=== PATIENT | female | born 2000 | race Caucasian/White ===

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

== ENCOUNTER 2022-09-21 23:12 | Emergency (ER) | payer BC, SELFPAY ==
[2022-09-22 00:17] VITALS: BP 118/70; PULSE 74; RESP 16; TEMP 36.7; O2SAT 100
== END 2022-09-22 04:00 | disposition home or self-care (01) ==
LOC: ANHED 09-22 18:30
PROVIDERS: Emergency Provider Emergency Medicine; PCP Internal Medicine
DX: S61.251A Open bite of left index finger without damage to nail, initial encounter (principal); S61.250A Open bite of right index finger without damage to nail, initial encounter; W55.01XA Bitten by cat, initial encounter
CPT/HCPCS: 99283; A9270

== ENCOUNTER 2024-04-19 10:00 | Emergency (ER) | payer BC, SELFPAY ==
--- NOTE | ~2024-04-19 | XR_ITS ---
XR wrist RT min 3V 04/19/2024 10:51 Indication: Right wrist pain after fall Procedure: 4 views right wrist Comparison: 06/15/2016 Findings: There is a possible triquetrum fracture. No significant soft tissue abnormality. No foreign bodies. Impression: 1: Possible triquetral fracture. Correlate for point tenderness. Consider correlation with CT. Reviewed, dictated and finalized at location B. NG MACHINE TENDER Impression: 1: Possible triquetral fracture. Correlate for point tenderness. Consider corre lation with CT.
--- NOTE | ~2024-04-19 | XR_ITS ---
EXAMINATION: XR wrist LT min 3V DATE: 04/19/2024 10:51 INDICATION: Left wrist pain. Fall. TECHNIQUE: 4 views of left wrist were obtained. COMPARISON: Left hand radiographs 12/23/2012 FINDINGS: Alignment is normal. There is a nondisplaced transverse fracture of scaphoid waist. Joint s paces are normal. IMPRESSION: 1. Nondisplaced scaphoid waist fracture. Reviewed, dictated and finalized at location A. INE COUNTER AGENT
[2024-04-19 10:17] VITALS: BP 104/64; PULSE 74; RESP 20; TEMP 36.8; O2SAT 99
--- NOTE | 2024-04-19 10:28 | ED.UPPEXIN ---
HPI - Extremity Injury (Upper) General Chief Complaint: Extremity Injury, Upper Stated Complaint: Snowboarding fell on hands wrist Time Seen by Provider: 04/19/24 10:45 Source: patient, RN notes reviewed and old records reviewed Mode of arrival: ambulatory Limitations: no limitations History of Present Illness HPI narrative: Patient presents with complaints of bilateral wrist pain, left worse than right. She reports that she fell off of a snowboard yesterday. Caught self with outstretched hands. She retains full range of motion to both wrist, but states that this greatly increases pain. She does have some swelling to the left wrist. She took Advil last night, but has not taken any medications this morning. She has not applied ice to the site Related Data Home Medications ?Medication ?Instructions ?Recorded ?Confirmed ?Last Taken ?Type buspirone 5 mg tablet mg 04/19/24 Unknown History dextroamphetamine-amphetamine 5 mg 04/19/24 Unknown History tablet hydroxyzine HCl 50 mg tablet mg 04/19/24 Unknown History Allergies Allergy/AdvReac Type Severity Reaction Status Date / Time chlorhexidine Allergy Severe hives Verified 04/19/24 10:20 iodine Allergy Severe hives Verified 04/19/24 10:20 dermaglue Allergy Severe Rash Uncoded 09/29/21 16:15 Review of Systems Review of Systems: All systems reviewed & are unremarkable except as noted in HPI and below Constitutional: Constitutional: Reports no additional constitutional complaints ENT: Reports system reviewed and no additional complaints, except as documented Cardiovascular: Cardiovascular: Reports no additional cardiovascular complaints Respiratory: Respiratory: Reports no additional respiratory complaints Gastrointestinal: Gastrointestinal: Reports no additional gastrointestinal complaints Musculoskeletal: Musculoskeletal: Reports as per HPI and Reports arthralgias FOR[facility] Past Medical History Medical History Anemia Surgical History Surgical History [place] teeth extracted H/O knee surgery Hx of tonsillectomy Family History Family History Father No known problems Mother Celiac disease Sibling POTS (postural orthostatic tachycardia syndrome) Social History Social History Smoking status: Never smoker Alcohol intake: never Substance use: never Comments At the time of my signature, I reviewed and agree with the nursing past medical, surgical, social, and family history. There is no relevant family history pertinent to the patient complaint. Exam Const: General: cooperative, no acute distress, alert and awake Orientation/consciousness: oriented to person, oriented to place and oriented to time HENMT: Head: normal to inspection Resp: Effort & Inspection: normal respiratory effort and able to speak in complete sentences Auscultation: clear to auscultation bilaterally, no crackles, no rales, no rhonchi and no wheezes Cardio: Palpation: normal PMI Rate: regular rate Rhythm: regular rhythm Heart sounds: S1 normal heart sound present and S2 normal heart sound present Neuro: General: oriented to person, oriented to place and oriented to time Cranial nerves: Yes CN's II-XII intact bilaterally Extrem: Right upper extremity: full ROM and Extremity exam: right hand normal capillary refill Left upper extremity: full ROM and hand normal capillary refill Hand/finger images:  1. tenderness, swelling 2. tenderness Psych: Appearance: grossly normal Thought process: Normal thought process present Insight: Good insight present (Psych) Judgement: Good judgement present (Psych) Course Course Level of Care: Express Care Visit Vital Signs Vital signs: Vital Signs Temperature 98.2 F 04/19/24 10:17 Pulse Rate 74 04/19/24 10:17 Respiratory Rate 20 04/19/24 10:17 Blood Pressure 104/64 04/19/24 10:17 Pulse Oximetry 99 04/19/24 10:17 Temperature 98.2 F 04/19/24 10:17 Pulse Rate 74 04/19/24 10:17 Respiratory Rate 20 04/19/24 10:17 Blood Pressure 104/64 04/19/24 10:17 Pulse Oximetry 99 04/19/24 10:17 Reviewed MDM - Extremity Injury (Upper) MDM Narrative Medical decision making narrative: patient with bilateral wrist since yesterday. X-rays show bilateral fractures, point tenderness does correlate with x-ray read. She is advised to follow with Orthopedics, temporary splint applied bilaterally Discharge instructions reviewed with patient, as well as provided in writing per nursing staff. The instructions also include specific and strict return/GO TO THE ER as well as f/u information. All questions have been answered, and the patient deny any further questions with discharge and discharge plan. Some parts of this dictation were generated by voice recognition software and may contain typographical and/or grammatical inaccuracies. Differential Diagnosis Differential diagnosis: Likely sprain and strain of wrist, fracture of wrist and fracture of hand Medical Records Attestation: I reviewed the patient's medical records. Lab Data Attestation: I reviewed the patient's lab results. Imaging Data Attestation: I personally reviewed and interpreted this imaging study as follows: My impression: Bilateral wrist fractures Radiologist's impression: [address] [place] [address] XRay Report Signed Patient: Samantha Burden : 2000 MR#: [id number] [address] [place] [address] XRay Report Signed Patient: Samantha Burden : 2000 MR#: [id number] Age: 23 Acct:[id number] Loc: [facility] ADM Date: 04/19/24Attending Dr: Ordering Physician: Mary Alice Lopez FNP Date of Service: 04/19/24 Procedure(s): XR wrist RT min 3V Accession Number(s): [id number] cc: Mary Alice Lopez FNP; Pilar, Kraig FAN~ XR wrist RT min 3V 04/19/2024 10:51 Indication: Right wrist pain after fall Procedure: 4 views right wrist Comparison: 06/15/2016 Findings: There is a possible triquetrum fracture. No significant soft tissue abnormality. No foreign bodies. Impression: 1: Possible triquetral fracture. Correlate for point tenderness. Consider correlation with CT. Reviewed, dictated and finalized at location B. CULTURE PROGRAM DIRECTOR Please be advised this is a medical document. It is intended for [id number] communication. It is written in medical language and may contain unfamiliar abbreviations or verbiage. Medical documents are intended to carry relevant information, facts as evident, and the clinical opinion of the practitioner at the time of the encounter. This report may have been done utilizing a voice recognition system. Attempts have been made to correct errors. However, there may be uncorrected grammatical, spelling, and recognition errors present. The file time of this note does not necessarily represent the time the patient was seen. Dictated By: Mickey Zeng MD 04/19/24 1104 Signed By: <Electronically signed by Mickey Zeng MD in OV> 04/19/24 1108 Age: 23 Acct:[id number] Loc: [facility] ADM Date: 04/19/24Attending Dr: Ordering Physician: Mary Alice Lopez FNP Date of Service: 04/19/24 Procedure(s): XR wrist RT min 3V Accession Number(s): [id number] cc: Mary Alice Lopez FNP; Pilar, Kraig FAN~ XR wrist RT min 3V 04/19/2024 10:51 Indication: Right wrist pain after fall Procedure: 4 views right wrist Comparison: 06/15/2016 Findings: There is a possible triquetrum fracture. No significant soft tissue abnormality. No foreign bodies. Impression: 1: Possible triquetral fracture. Correlate for point tenderness. Consider correlation with CT. Reviewed, dictated and finalized at location B. CULTURE PROGRAM DIRECTOR Please be advised this is a medical document. It is intended for [id number] communication. It is written in medical language and may contain unfamiliar abbreviations or verbiage. Medical documents are intended to carry relevant information, facts as evident, and the clinical opinion of the practitioner at the time of the encounter. This report may have been done utilizing a voice recognition system. Attempts have been made to correct errors. However, there may be uncorrected grammatical, spelling, and recognition errors present. The file time of this note does not necessarily represent the time the patient was seen. Dictated By: Mickey Zegn MD 04/19/24 1104 Signed By: <Electronically signed by Mickey Zeng MD in OV> 04/19/24 1108 Discharge Plan Discharge Clinical Impression: Fracture of wrist Qualifiers: Encounter type: initial encounter Fracture type: closed Laterality: right Qualified Code(s): S62.101A - Fracture of unspecified carpal bone, right wrist, initial encounter for closed fracture Fracture of left wrist Qualifiers: Encounter type: initial encounter Fracture type: closed Qualified Code(s): S62.102A - Fracture of unspecified carpal bone, left wrist, initial encounter for closed fracture Patient Disposition: Home, Self-Care Condition: Stable Instructions: Antibiotic Form, Wrist Fracture in Adults (ED) Additional Instructions: Take medications as prescribed. Follow-up with primary care provider. Emergency department for new or worse symptoms. Orthopedic follow-up as soon as possible Patient Language: Romanian Prescriptions: New naproxen [Naprosyn] 500 mg tablet 500 mg PO BID PRN (Reason: pain) Qty: 30 0RF tramadol 100 mg tablet 100 mg PO Q6H PRN (Reason: pain) Qty: 14 0RF No Action buspirone 5 mg tablet hydroxyzine HCl 50 mg tablet dextroamphetamine-amphetamine 5 mg tablet alprazolam 0.5 mg tablet 0.5 mg PO BID PRN (Reason: anxiety) Qty: 30 0RF escitalopram oxalate 10 mg tablet 10 mg PO DAILY Qty: 30 0RF Follow-up/Referrals: Pilar,MD Kraig [Primary Care Provider] - Oz Scott MD [Physician] - 2 Days Stand Alone Forms: Work/School Release IP Time of Disposition: 11:34
== END 2024-04-19 11:55 | disposition home or self-care (01) ==
PROVIDERS: Emergency Provider Nurse Practitioner Family; PCP Internal Medicine
DX: S62.002A Unspecified fracture of navicular [scaphoid] bone of left wrist, initial encounter for closed fracture (principal); S62.101A Fracture of unspecified carpal bone, right wrist, initial encounter for closed fracture; V00.311A Fall from snowboard, initial encounter; Y93.23 Activity, snow (alpine) (downhill) skiing, snowboarding, sledding, tobogganing and snow tubing
CPT/HCPCS: 29125 ×2; 73110; 99214; G0463